=== PATIENT | female | born 1995 | race Caucasian/White ===

== ENCOUNTER 2018-03-19 10:29 | Emergency (ER) | payer BC, OTHER ==
[~2018-03-19] VITALS: Ht 162.6 cm; Wt 68.0 kg
[2018-03-19] MEDS ORDERED: IV NORMAL SALINE 1,000ML 1,000 ML IV SCH (10:47)
[2018-03-19] MEDS ORDERED: ONDANSETRON PF 4 MG/2 ML VIAL. IV ONE (11:00)
[2018-03-19 11:15] LABS: BASO % 1 % (0-3); EOS # 0.1 x10^3/uL (0.0-0.7); EOS % 2 % (0-3); HEMATOCRIT 40.9 % (36.0-47.0); HEMOGLOBIN 13.9 g/dL (12.0-15.5); LYMPH # 1.4 x10^3/uL (1.0-4.8); LYMPH % 30 % (24-48); MEAN CORPUSCULAR HEMOGLOBIN 31 pg (25-35); MEAN CORPUSCULAR HGB CONC 34 g/dL (31-37); MEAN CORPUSCULAR VOLUME 91 fL (79-100); MONO # 0.6 x10^3/uL (0.0-1.1); MONO % 12 % (0-9); NEUT # 2.6 x10^3uL (1.8-7.7); NEUT % 56 % (31-73); PLATELET COUNT 212 x10^3/uL (140-400); RED CELL DISTRIBUTION WIDTH 12.2 % (11.5-14.5); WHITE BLOOD COUNT 4.7 x10^3/uL (4.0-11.0)
[2018-03-19 11:23] LABS: BACTERIA,URINE MANY /HPF (0-FEW); BILIRUBIN,URINE NEG (NEG); CLARITY,URINE CLOUDY; COLOR,URINE YELLOW; GLUCOSE,URINE NEG (NEG); NITRITE,URINE NEG (NEG); RBC,URINE RARE /HPF (0-2); SPERM,URINE PRESENT /HPF; SQUAMOUS EPITHELIAL CELL,UR MANY /LPF; UROBILINOGEN,URINE 0.2 mg/dL (0.2 mg/dL); WBC,URINE RARE /HPF (0-4)
[2018-03-19 11:24] LABS: U PREG PATIENT NEGATIVE (NEG)
[2018-03-19 11:29] LABS: ALBUMIN 3.5 g/dL (3.4-5.0); ALBUMIN/GLOBULIN RATIO 0.9 (1.0-1.7); CALCIUM 9.1 mg/dL (8.5-10.1); CREATININE 0.8 mg/dL (0.6-1.0); GFR 89.7; POTASSIUM 3.7 mmol/L (3.5-5.1); TOTAL BILIRUBIN 0.3 mg/dL (0.2-1.0); TOTAL PROTEIN 7.4 g/dL (6.4-8.2)
--- NOTE | 2018-03-19 12:29 | RAD ---
Right upper quadrant abdominal ultrasound, 03/19/2018: HISTORY: Right upper quadrant pain The gallbladder is within normal limits in size. There is no sonographic evidence of cholelithiasis. The gallbladder [place] are not thickened. The common hepatic duct is of normal caliber. No hepatic abnormality is seen. The visualized portions of the pancreas are unremarkable. There is mild hydronephrosis on the right. IMPRESSION: 1. No significant gallbladder abnormality is detected. 2. Mild right hydronephrosis. Electronically signed by: James Yin MD (03/19/2018 12:26 PM) [facility]
[2018-03-19] MEDS ORDERED: NAPR-514 PO (12:58)
[2018-03-19] MEDS ORDERED: ONDA4TAB10 SL (12:58)
--- NOTE | 2018-03-19 12:58 | PHYS DOC ---
Past History Past Medical History: No Pertinent History Past Surgical History: Other Smoking: Non-smoker Alcohol Use: None Drug Use: None Adult General Chief Complaint Chief Complaint: ABDOMINAL PAIN HPI HPI 23-year-old female patient complaining of sudden onset of pain in the epigastric area with radiation to periumbilical area that started around 9:30 today as a severe and sharp pain without radiation. Patient complaining of 3 episodes of nonbloody vomiting without diarrhea, fever, urinary symptoms, vaginal bleeding or discharge. Patient states the pain was 10 and decreased to 5 /10 at arrival to ER. Review of Systems Review of Systems Constitutional: Denies fever or chills [] Eyes: Denies change in visual acuity, redness, or eye pain [] HENT: Denies nasal congestion or sore throat [] Respiratory: Denies cough or shortness of breath [] Cardiovascular: No additional information not addressed in HPI [] GI: Reports abdominal pain, nausea, vomiting, denies bloody stools or diarrhea [ ] : Denies dysuria or hematuria [] Musculoskeletal: Denies back pain or joint pain [] Integument: Denies rash or skin lesions [] Neurologic: Denies headache, focal weakness or sensory changes [] Endocrine: Denies polyuria or polydipsia [] All other systems were reviewed and found to be within normal limits, except as documented in this note. Current Medications Current Medications Current Medications Medications (Trade) Dose Ordered Sig/Shira Start Time Stop Time Status Last Admin Dose Admin Ondansetron HCl (Zofran) 4 mg 1X ONCE 03/19/18 11:00 03/19/18 11:01 DC 03/19/18 11:06 4 MG Sodium Chloride 1,000 ml @ 1,000 mls/hr Q1H 03/19/18 10:47 03/19/18 11:46 DC 03/19/18 11:06 1,000 MLS/HR Allergies Allergies Allergies Coded Allergies Type Severity Reaction Last Updated Verified Penicillins Allergy Unknown 01/17/14 Yes Sulfa (Sulfonamide Antibiotics) Allergy Unknown 01/17/14 Yes Physical Exam Physical Exam Constitutional: Well developed, well nourished, no acute distress, non-toxic appearance. [] HENT: Normocephalic, atraumatic, oropharynx moist, no oral exudates, nose normal. [] Eyes: PERRLA, EOMI, conjunctiva normal, no discharge. [] Neck: Normal range of motion, no tenderness, supple, no stridor. [] Cardiovascular:Heart rate regular rhythm, no murmur [] Lungs & Thorax: Bilateral breath sounds clear to auscultation [] Abdomen: Bowel sounds normal, soft, no tenderness, no masses, no pulsatile masses. [] Skin: Warm, dry, no erythema, no rash. [] Back: No tenderness, no CVA tenderness. [] Extremities: No tenderness, no cyanosis, no clubbing, ROM intact, no edema. [] Neurologic: Alert and oriented X 3, normal motor function, normal sensory function, no focal deficits noted. [] Psychologic: Affect normal, judgement normal, mood normal. [] Current Patient Data Vital Signs Vital Signs Date Time Temp Pulse Resp B/P (MAP) Pulse Ox O2 Delivery O2 Flow Rate FiO2 03/19/18 11:13 97.9 78 18 97 Room Air Lab Results Laboratory Tests Test 03/19/18 10:40 03/19/18 10:58 Urine Collection Type Unknown Urine Color Yellow Urine Clarity Cloudy Urine pH 6.0 Urine Specific Ferdinand 1.020 Urine Protein Neg (NEG-TRACE) Urine Glucose (UA) Neg mg/dL (NEG) Urine Ketones (Stick) Neg mg/dL (NEG) Urine Blood Neg (NEG) Urine Nitrite Neg (NEG) Urine Bilirubin Neg (NEG) Urine Urobilinogen Dipstick 0.2 mg/dL (0.2 mg/dL) Urine Leukocyte Esterase Neg (NEG) Urine RBC Rare /HPF (0-2) Urine WBC Rare /HPF (0-4) Urine Squamous Epithelial Cells Many /LPF Urine Bacteria Many /HPF (0-FEW) Urine Mucus Slight /LPF Urine Sperm Present /HPF Urine Test Negative (NEG) White Blood Count 4.7 x10^3/uL (4.0-11.0) Red Blood Count 4.50 x10^6/uL (3.50-5.40) Hemoglobin 13.9 g/dL (12.0-15.5) Hematocrit 40.9 % (36.0-47.0) Mean Corpuscular Volume 91 fL (79-100) Mean Corpuscular Hemoglobin 31 pg (25-35) Mean Corpuscular Hemoglobin Concent 34 g/dL (31-37) Red Cell Distribution Width 12.2 % (11.5-14.5) Platelet Count 212 x10^3/uL (140-400) Neutrophils (%) (Auto) 56 % (31-73) Lymphocytes (%) (Auto) 30 % (24-48) Monocytes (%) (Auto) 12 % (0-9) H Eosinophils (%) (Auto) 2 % (0-3) Basophils (%) (Auto) 1 % (0-3) Neutrophils # (Auto) 2.6 x10^3uL (1.8-7.7) Lymphocytes # (Auto) 1.4 x10^3/uL (1.0-4.8) Monocytes # (Auto) 0.6 x10^3/uL (0.0-1.1) Eosinophils # (Auto) 0.1 x10^3/uL (0.0-0.7) Basophils # (Auto) 0.0 x10^3/uL (0.0-0.2) Sodium Level 139 mmol/L (136-145) Potassium Level 3.7 mmol/L (3.5-5.1) Chloride Level 104 mmol/L (98-107) Carbon Dioxide Level 29 mmol/L (21-32) Anion Gap 6 (6-14) Blood Urea Nitrogen 14 mg/dL (7-20) Creatinine 0.8 mg/dL (0.6-1.0) Estimated GFR (Cockcroft-Gault) 89.7 BUN/Creatinine Ratio 18 (6-20) Glucose Level 96 mg/dL (70-99) Calcium Level 9.1 mg/dL (8.5-10.1) Total Bilirubin 0.3 mg/dL (0.2-1.0) Aspartate Amino Transferase (AST) 18 U/L (15-37) Alanine Aminotransferase (ALT) 32 U/L (14-59) Alkaline Phosphatase 107 U/L (46-116) Troponin I Quantitative < 0.017 ng/mL (0-0.055) Total Protein 7.4 g/dL (6.4-8.2) Albumin 3.5 g/dL (3.4-5.0) Albumin/Globulin Ratio 0.9 (1.0-1.7) L Lipase 133 U/L (73-393) EKG EKG [] Radiology/Procedures Radiology/Procedures [[address] [address] IMAGING REPORT Signed PATIENT: ARANZA COON ACCOUNT: [id number] : 1995 LOCATION: ER AGE: 23 SEX: F EXAM STATUS: PRE ER ORD. PHYSICIAN: USMAN LEES MD REASON: epigastric pain and nausea and vomiting PROCEDURE: ABDOMEN LTD Right upper quadrant abdominal ultrasound, 03/19/2018: HISTORY: Right upper quadrant pain The gallbladder is within normal limits in size. There is no sonographic evidence of cholelithiasis. The gallbladder [place] are not thickened. The common hepatic duct is of normal caliber. No hepatic abnormality is seen. The visualized portions of the pancreas are unremarkable. There is mild hydronephrosis on the right. IMPRESSION: 1. No significant gallbladder abnormality is detected. 2. Mild right hydronephrosis. Electronically signed by: James Yin MD (03/19/2018 12:26 PM) [facility] DICTATED AND SIGNED BY: JAMES YIN MD DATE: 03/19/18 3744 CC: USMAN LEES MD ~ ] Course & Med Decision Making Course & Med Decision Making Pertinent Labs and Imaging studies reviewed. (See chart for details) Evaluation of patient in ER showed 23-year-old male patient with sudden onset of upper abdominal pain and nausea and vomiting. Patient had unremarkable physical exam in ER and didn't want to have pain medication. Labs and gallbladder ultrasound was unremarkable and patient felt better while she was in ER and tolerated oral intake. Plan to discharge patient home with diagnosis of acute gastritis. [] Dragon Disclaimer Dragon Disclaimer This electronic medical record was generated, in whole or in part, using a voice recognition dictation system. Departure Departure: Impression: Primary Impression: Acute gastritis Disposition: 01 HOME, SELF-CARE (at 1255) Condition: IMPROVED Patient Instructions: Abdominal Pain, Nausea and Vomiting Additional Instructions: Drink plenty of liquids Follow-up with your primary care physician in 3-5 days Return to ER if not getting better Scripts Naproxen (NAPROXEN) 500 Mg Tablet 1 TAB PO BID, #14 TAB Prov: USMAN LEES MD 03/19/18 Ondansetron (ZOFRAN ODT) 4 Mg Tab.rapdis 1 TAB SL Q8HRS, #15 TAB Prov: USMAN LEES MD 03/19/18 USMAN LEES MD Mar 19, 2018 12:58
[2018-03-19 13:19] VITALS: BP 109/59
== END 2018-03-19 13:18 | disposition home or self-care (01) ==
LOC: ER 10:29
DX: K29.00 Acute gastritis without bleeding (principal); Z88.0 Allergy status to penicillin; Z88.2 Allergy status to sulfonamides
CPT/HCPCS: 36415; 76705; 80053; 81001; 81025; 83690; 84484; 85025; 87086; 96361; 96374; 99285; J2405; J7030

== ENCOUNTER 2018-03-28 01:24 | Emergency (ER) | payer BC ==
[~2018-03-28] VITALS: Ht 162.6 cm; Wt 73.5 kg
[~2018-03-28 01:24] MED LIST: NAPR-514 PO; ONDA4TAB10 SL
[2018-03-28 01:43] VITALS: BP 112/64
--- NOTE | 2018-03-28 02:05 | PHYS DOC ---
Past History Past Medical History: No Pertinent History Past Surgical History: Other Additional Past Surgical Histo: Ankle surgery Smoking: Non-smoker Alcohol Use: Occasionally Drug Use: None Adult General Chief Complaint Chief Complaint: CHEST PAIN HPI HPI Patient is a 23 y/o female who presents for re-evaluation of epigastric and substernal chest pain which has been intermittent over the last 1 week. Patient recently seen in ED at [facility] for same on 03/20/18 for same. Per [facility] review, on previous visit patient's laboratory data was without acute process and she also had a negative US for cholecystitis. Patient reports she was out with her boyfriend sweta when the pain began. Reports associated nausea and vomiting. Denies trauma. Denies . Denies leg swelling or calf tenderness. Denies hx of PE/DVT. Review of Systems Review of Systems Constitutional: Denies fever or chills [] Eyes: Denies change in visual acuity, redness, or eye pain [] HENT: Denies nasal congestion or sore throat [] Respiratory: Denies cough or shortness of breath [] Cardiovascular: Reports chest pain, denies syncope GI: Reports abdominal pain with associated nausea and vomiting. : Denies dysuria or hematuria [] Musculoskeletal: Denies back pain or joint pain [] Integument: Denies rash or skin lesions [] Neurologic: Denies headache, focal weakness or sensory changes [] Complete systems were reviewed and found to be within normal limits, except as documented in this note. Current Medications Current Medications Current Medications Medications (Trade) Dose Ordered Sig/Shira Start Time Stop Time Status Last Admin Dose Admin Famotidine (Pepcid Vial) 20 mg 1X ONCE 03/28/18 02:00 03/28/18 02:01 UNV Ketorolac Tromethamine (Toradol) 30 mg 1X ONCE 03/28/18 02:00 03/28/18 02:01 UNV Multi-Ingredient Mouthwash/Gargle (Gi Cocktail) 20 ml 1X ONCE 03/28/18 02:00 03/28/18 02:01 UNV Ondansetron HCl (Zofran) 4 mg 1X ONCE 03/28/18 02:00 03/28/18 02:01 UNV Allergies Allergies Allergies Coded Allergies Type Severity Reaction Last Updated Verified Penicillins Allergy Unknown 01/17/14 Yes Sulfa (Sulfonamide Antibiotics) Allergy Unknown 01/17/14 Yes Physical Exam Physical Exam Constitutional: Well developed, well nourished, no acute distress, non-toxic appearance. [] HENT: Normocephalic, atraumatic, oropharynx moist Eyes: EOMI, conjunctiva normal, no discharge. [] Neck: Normal range of motion, no tenderness, supple, no stridor. [] Cardiovascular: Heart rate regular rhythm, no murmur [] Lungs & Thorax: Bilateral breath sounds clear to auscultation, no wheezes/ rhonchi/rales Abdomen: Soft, no tenderness Skin: Warm, dry, no erythema, no rash. [] Extremities: No tenderness, no edema. [] Neurologic: Alert and oriented X 3, no focal deficits noted. [] Psychologic: Affect normal, judgement normal, mood normal. [] Current Patient Data Vital Signs Vital Signs Date Time Temp Pulse Resp B/P (MAP) Pulse Ox O2 Delivery O2 Flow Rate FiO2 03/28/18 01:43 97.9 80 20 97 Room Air EKG EKG NSR at 58bpm, NO ST elevation, obtained at 0212 from 03/28/18 Radiology/Procedures Radiology/Procedures CXR 2 view: Preliminary interpretation by ED physician: No acute process Course & Med Decision Making Course & Med Decision Making Pertinent Labs and Imaging studies reviewed. (See chart for details) Patient presents for re-evaluation of epigastric with radiation to substernal chest which has been intermittent for the last week. Patient thought to have gastritis on previous visit after normal lab data and negative US for cholecystitis. Patient reports pain same as prior. Denies trauma. Denies leg swelling or calf tenderness. Low risk for CAD and PE. No signs of DVT. PERC negative. Labs obtained and posted to chart. LFT/lipase WNL. EKG stable. CXR clear. Symptoms likely secondary to gastritis. Will prescribe pepcid and carafate with recommendation to follow with GI. Patient stable for discharge with outpatient follow-up with PCP/GI. GI referral provided. Discussed findings and plan with patient and family, who acknowledge understanding and agreement. Scottie Disclaimer Scottie Disclaimer This electronic medical record was generated, in whole or in part, using a voice recognition dictation system. Departure Departure: Impression: Primary Impression: Atypical chest pain Disposition: HOME, SELF-CARE Condition: STABLE Referrals: WILLIAM WEISS (PCP) RIKI JACKSON MD Patient Instructions: Chest Pain (Nonspecific), [id number], Gastritis, Adult , [id number] Scripts Sucralfate (CARAFATE) 1 Gm/10 Ml Oral.susp 10 ML PO QIDACHS, #1200 ML Prov: CORNELIUS QUESADA DO 03/28/18 Famotidine (PEPCID) 20 Mg Tablet 1 TAB PO BID, #20 TAB 0 Refills Prov: CORNELIUS QUESADA DO 03/28/18 CORNELIUS QUESADA DO Mar 28, 2018 02:05
--- NOTE | 2018-03-28 02:15 | EKG ---
[address] [address] Test Date: 2018-03-28 Test Time: 02:12:46 Pat Name: ARANZA COON Department: Room: Gender: F Safe Technician: : 1995 Requested By: CORNELIUS QUESADA Order Number: [id number] Reading MD: Measurements Intervals [place] Rate: 58 P: 47 MN: 140 QRS: 39 QRSD: 82 T: 25 QT: 402 QTc: 398 Interpretive Statements SINUS RHYTHM NO SPECIFIC ECG ABNORMALITIES RI6.01 Unconfirmed report No previous ECG available for comparison
[2018-03-28] MEDS ORDERED: FAMOTIDINE 20 MG/2 ML VIAL IVP ONE (02:30)
[2018-03-28] MEDS ORDERED: ONDANSETRON PF 4 MG/2 ML VIAL. IV ONE (02:30)
[2018-03-28] MEDS ORDERED: KETOROLAC 30 MG/ML VIAL. IV ONE (02:30)
[2018-03-28] MEDS ORDERED: LIDO:MAALOX 1:1 20 ML SINGLE DOSE. PO ONE (02:30)
[2018-03-28 02:53] LABS: BILIRUBIN,URINE NEG (NEG); CLARITY,URINE CLEAR; COLOR,URINE YELLOW; GLUCOSE,URINE NEG (NEG); NITRITE,URINE NEG (NEG); RBC,URINE OCC /HPF (0-2); UROBILINOGEN,URINE 1 mg/dL (0.2 mg/dL); WBC,URINE OCC /HPF (0-4)
[2018-03-28 02:54] LABS: BACTERIA,URINE FEW /HPF (0-FEW); SQUAMOUS EPITHELIAL CELL,UR FEW /LPF
[2018-03-28 02:55] LABS: BARBITURATES NEG (NEG); BENZODIAZEPINES NEG (NEG); CANNABINOIDS NEG (NEG); COCAINE NEG (NEG); METHADONE NEG (NEG); OPIATES NEG (NEG); PHENCYCLIDINE NEG (NEG)
[2018-03-28 02:58] LABS: AMPHETAMINE/METHAMPHETAMINE NEG (NEG)
[2018-03-28 03:00] LABS: ALBUMIN 3.6 g/dL (3.4-5.0); CALCIUM 8.9 mg/dL (8.5-10.1); CREATININE 0.8 mg/dL (0.6-1.0); GFR 89.7; POTASSIUM 3.8 mmol/L (3.5-5.1); TOTAL BILIRUBIN 0.4 mg/dL (0.2-1.0); TOTAL PROTEIN 7.2 g/dL (6.4-8.2)
[2018-03-28] MEDS ORDERED: SUCR1ORA5 PO (03:27)
[2018-03-28] MEDS ORDERED: FAMO-63 PO (03:27)
[2018-03-28 03:35] LABS: HEMOGLOBIN 13.6 g/dL (12.0-15.5); RED BLOOD COUNT 4.47 x10^6/uL (3.50-5.40); WHITE BLOOD COUNT 8.5 x10^3/uL (4.0-11.0)
[2018-03-28 03:36] LABS: LYMPH % 27 % (24-48); MEAN CORPUSCULAR HEMOGLOBIN 30 pg (25-35); MEAN CORPUSCULAR HGB CONC 33 g/dL (31-37); MEAN CORPUSCULAR VOLUME 92 fL (79-100); NEUT % 67 % (31-73); PLATELET COUNT 242 x10^3/uL (140-400); RED CELL DISTRIBUTION WIDTH 12.1 % (11.5-14.5)
[2018-03-28 03:37] LABS: LYMPH # 2.3 x10^3/uL (1.0-4.8); MONO # 0.5 x10^3/uL (0.0-1.1); MONO % 6 % (0-9); NEUT # 5.7 x10^3uL (1.8-7.7)
--- NOTE | 2018-03-28 08:04 | RAD ---
Chest, PA and Lateral: Technique: PA and lateral views of the chest were obtained. History: Chest pain. Comparison: None. Findings: The heart and pulmonary vasculature appear within normal limits. The lungs are clear. The pleural margins are clear. Impression: No acute chest process is seen. Electronically signed by: Archie Corral MD (03/28/2018 8:01 AM) [facility]
== END 2018-03-28 03:42 | disposition home or self-care (01) ==
LOC: ER 01:24
DX: R07.2 Precordial pain (principal); R10.13 Epigastric pain; R11.2 Nausea with vomiting, unspecified; Z88.0 Allergy status to penicillin; Z88.2 Allergy status to sulfonamides
CPT/HCPCS: 36415; 71046; 80053; 80307; 81001; 81025; 83690; 83735; 85025; 93005; 96374; 96375; 99285; G0480; J1885; J2405; S0028; G0479